=== PATIENT | male | born 1965 | race Two or more races ===

== ENCOUNTER 2024-12-23 18:14 | Inpatient (IN) | payer MEDICAID, OTHER ==
[~2024-12-23] VITALS: Ht 160 cm; Wt 161.3 kg
--- NOTE | 2024-12-23 18:36 | ECG ---
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
--- NOTE | 2024-12-23 18:44 | ED.PDOC ---
History of Present Illness HPI Comments 59-year-old male presents with chief complaint of epigastric abdominal pain, that radiates to his groin, with associated spoke constipation, headache, and mild shortness of breath. Patient reports on symptoms beginning, suddenly, at around 9:00 a.m., yesterday, after getting up from a seated position from his kitchen table. Pain is reported to have significantly worsened since then and feels similar to when he ripped his hernia mesh 3-4 times in the past, with exception of pain, now, radiating. He suspects on, possibly, moving and twisting the wrong way then as the possible cause of his pain. He also report isolated incident of dark stool production, yesterday. Significant history of hernia mesh repair 1x year ago, Hepatitis C, HLD, HTN, and left kidney atrophy. Patient denies having any vomiting, diarrhea, urinary symptoms, fever, chills, or further associated symptoms. Time Seen by MD: 18:20 Reviewed Notes: Nurses Notes, Medications, Allergies Allergies: Coded Allergies: NO KNOWN ALLERGIES (Unverified , 12/23/24) Home Meds Reported Medications Atorvastatin Calcium (Lipitor) 40 Mg Tab, 1 TAB PO QPM, #90 TAB 1 Refill 12/24/24 Fluoxetine Hcl (Fluoxetine Hcl) 20 Mg Tab, 1 TAB PO TID, #90 TAB 3 Refills 12/24/24 Loratadine (Loradamed) 10 Mg Tab, 10 MG PO DAILY, MG 12/24/24 Cholecalciferol (Vitamin D-3) 5,000 Unit Cap, 5000 UNIT PO, CAP 12/24/24 Lisinopril (Lisinopril) 20 Mg Tab, 1 TAB PO DAILY, #30 TAB 5 Refills 12/24/24 Information Source: Patient Mode of Arrival: Ambulatory Severity: Moderate Timing: Days Duration: Since onset Prehospital treatment: None Review of Systems: REVIEW OF SYSTEMS: No fever, no chills, or fatigue HEENT: No sore throat, no earache, no congestion, no neck pain. Cardiac: No chest pain. No palpitations. Lungs: Mild shortness of breath, no cough. GI: Abdominal pain, nausea, possible constipation, no diarrhea, no vomiting : Groin pain, No dysuria, frequency, or urgency. No hematuria. Musculoskeletal: No joint pain , no joint swelling, no extremity edema. Skin: No rash, no itching. Neuro: Headache, no dizziness, no weakness Vital Signs Vital Signs Date Time Temp Pulse Resp B/P (MAP) Pulse Ox O2 Delivery O2 Flow Rate FiO2 12/23/24 23:00 81 16 131/72 12/23/24 21:58 98.2 99 98.2 Physical Exam General: Awake, alert and oriented. No acute distress. Skin: Skin in warm, dry and intact. Appropriate color for ethnicity. HEENT: The head is normocephalic and atraumatic. Conjunctivae are clear without exudates or hemorrhage. Sclera is non-icteric. EOM are intact. No signs of nystagmus. Eyelids are normal in appearance without swelling or lesions. Oral mucosa is pink and moist Neck: The neck is supple with normal range of motion. No JVD. Cardiac: Heart rate and rhythm are normal. No murmurs, gallops, or rubs are auscultated. Respiratory: No signs of respiratory distress. Lung sounds are clear in all lobes bilaterally without rales, rhonchi, or wheezes. Abdominal: Midline abdominal surgical scar, with the associated tenderness. Positive voluntary guarding. Otherwise, remaining abdomen is soft, non-tender without distention or rigidity. Bowel sounds are present and normoactive in all four quadrants. Extremities: Upper and lower extremities are atraumatic in appearance without deformity or edema. Neurological: The patient is awake, alert and oriented to person, place, and time with normal speech. Speech is clear. There is no facial asymmetry. Psychiatric: Appropriate mood and affect. Good judgement and insight. Past Medical History PAST MEDICAL HISTORY: High Lipids, HTN Past Medical History (Other): Left kidney atrophy Previous Hepatitis-C Surgical History: Hernia Repair Family History Family History: Unknown Social History Smoker: Non-Smoker Alcohol: Denies ETOH Use Drugs: Denies Drug Use Lives In: Home Was a procedure done? Was a procedure done?: No EKG EKG : Pulse Rate (adult): 104 [place]: Normal Cardiac Rhythm: ST Block: None Hypertrophy: None ST: Normal Differential Dx Considerations may include: Differential diagnoses considered include: Abdominal aortic aneurysm, HI, esophageal rupture, intestinal obstruction, mesenteric ischemia, perforated viscus or solid organ rupture, CHF with hepatomegaly, pneumonia, abscess, appendicitis, biliary disease, diverticulitis, gastritis, gastroenteritis, hepatitis, hernia, inflammatory bowel disease, pancreatitis, peptic ulcer disease, urinary tract infection, ureteral colic, constipation, GERD, irritable syndrome, abdominal wall pain, nonspecific abdominal pain, herpes zoster, nephrolithiasis. X-Ray, Labs, Meds, VS Vital Signs Date Time Temp Pulse Resp B/P (MAP) Pulse Ox O2 Delivery O2 Flow Rate FiO2 12/23/24 23:00 81 16 131/72 12/23/24 22:00 110 18 156/99 12/23/24 21:58 98.2 110 18 156/99 (118) 99 98.2 12/23/24 18:44 104 12/23/24 18:35 104 12/23/24 18:27 98.6 117 16 151/100 (117) 99 98.6 Lab Test 12/23/24 21:48 12/23/24 19:02 Range/Units Urine Color Light-yellow Yellow Urine Clarity Clear Clear Urine pH 6.0 5.0-9.0 Urine Specific [place] 1.040 H 1.001-1.035 Urine Protein Negative Negative Urine Ketones Negative Negative Urine Blood 1+ H Negative /uL Urine Nitrite Negative Negative Urine Bilirubin Negative Negative Urine Urobilinogen Normal Negative mg/dL Urine Leukocyte Esterase Negative Negative /uL Urine RBC 13 0 - 3 /hpf Urine Microscopic WBC 1 0-3 /HPF Urine Squamous Epithelial Cells None seen <5 /hpf Urine Bacteria None seen None Seen /hpf Urine Glucose Normal Normal mg/dL White Blood Count 12.9 H 4.4-10.8 10^3/uL Red Blood Count 5.32 4.5-5.90 10^6/uL Hemoglobin 16.9 13.5-17.5 g/dL Hematocrit 48.8 41.0-53.0 % Mean Corpuscular Volume 91.7 80.0-100.0 fL Mean Corpuscular Hemoglobin 31.7 28.0-32.0 pg Mean Corpuscular Hemoglobin Concent 34.6 32.0-36.0 g/dL Red Cell Distribution Width 13.4 11.8-14.3 % Platelet Count 225 140-450 10^3/uL Mean Platelet Volume 8.5 6.9-10.8 fL Neutrophils (%) (Auto) 65.2 37.0-80.0 % Lymphocytes (%) (Auto) 21.8 10.0-50.0 % Monocytes (%) (Auto) 12.4 H 0.0-12.0 % Eosinophils (%) (Auto) 0.5 0.0-7.0 % Basophils (%) (Auto) 0.1 0.0-2.0 % Neutrophils # (Auto) 8.4 1.6-8.6 10 ^3/uL Lymphocytes # (Auto) 2.8 0.4-5.4 10 ^3/uL Monocytes # (Auto) 1.6 H 0-1.3 10 ^3/uL Eosinophils # (Auto) 0.1 0-0.8 10 ^3/uL Basophils # (Auto) 0 0-0.2 10 ^3/uL Nucleated Red Blood Cells 0.0 % Sodium Level 139 136-145 mmol/L Potassium Level 4.1 3.5-5.1 mmol/L Chloride Level 104 98-107 mmol/L Carbon Dioxide Level 27 20-31 mmol/L Anion Gap 8 5-15 Blood Urea Nitrogen 14 9-23 mg/dL Creatinine 1.37 H 0.700-1.30 mg/dL Glomerular Filtration Rate Calc 60 >90 mL/min BUN/Creatinine Ratio 10.2 10.0-20.0 Serum Glucose 111 H 74-106 mg/dL Lactic Acid Level 1.2 0.4-2.0 mmol/L Calcium Level 9.2 8.7-10.4 mg/dL Total Bilirubin 0.9 0.2-1.0 mg/dL Aspartate Amino Transferase (AST) 27 13-40 U/L Alanine Aminotransferase (ALT) 34 7-40 U/L Alkaline Phosphatase 97 46-116 U/L Troponin I High Sensitivity 3 L </=54 ng/L Total Protein 7.5 5.7-8.2 g/dL Albumin 4.8 3.2-4.8 g/dL Lipase 42 12-53 U/L Current Medications Medications (Trade) Dose Ordered Sig/Waqar Route Start Time Stop Time Status Last Admin Piperacillin Sod/ Tazobactam Sod 100 ml @ 100 mls/hr ONCE ONCE IV 12/23/24 22:30 12/23/24 23:29 DC 12/23/24 23:13 [facility] [id number] [place] [id number] Ph: [phone] DIAGNOSTIC IMAGING Diagnostic Imaging Report : [id number] Signed PATIENT: FAISAL GREENFIELD ACCT: [id number] UNIT: [id number] : 1965 LOC: ER ROOM / BED: / AGE / SEX: 59 / M ADM STATUS: REG ER SERVICE 27 ORDERING PHYSICIAN: GENNARO ANNA MD PROCEDURE(s): TESUS - TESTICULAR ULTRASOUND REASON: b/l testicular pain ORDER NUMBER(s): [id number], ACCESSION NUMBER(s): [id number] ULTRASOUND OF SCROTUM AND CONTENTS. INDICATION: b/l testicular pain COMPARISON: None TECHNIQUE: Multiple real-time grayscale sonographic and color and duplex Doppler images of the scrotum and its contents were obtained. FINDINGS: RIGHT TESTICLE: Measures 4.7 x 2.2 x 2.7 cm. Right hydrocele LEFT TESTICLE: Measures 4.9 x 2.5 x 2.9 cm. Left hydrocele Small isoechoic left epididymal mass measuring 3 x 2 x 4 mm may represent complex cysts recommend follow-up. Both testicles demonstrate homogeneous echotexture without evidence of focal lesions. The right epididymal head measures 13 mm. The left epididymal head measures 10 mm. Subsequent color and duplex Doppler interrogation of the testes demonstrated symmetric normal vascular flow to both testicles. No focal areas of hyperemia were seen. IMPRESSION: 1. No evidence of torsion, epididymitis, and/or orchitis. 2. Small bilateral hydrocele 3. Small isoechoic structure off the left epididymis measuring 3 x 2 x 4 mm. Consider follow-up. ATED BY: MIKAEL ELIZABETH Jr., DO DICTATED DATE/TIME: 12/23/241920 SIGNED BY: MIKAEL ELIZABETH Jr., SIGNED DATE/TIME: 12/23/241920 CC: Time of 1ST Reevaluation: 18:50 Reevaluation 1ST: Unchanged Patient Education/Counseling: Treatment Family Education/Counseling: No Family Present SEPSIS Sepsis Screen Physician Orders Testicular Ultrasound (12/23/24 18:28) Ct Chest/Ab/Pl W Con- Iv Only (12/23/24 18:28) Blood Culture (12/23/24 22:21) Vital Signs Date Time Temp Pulse Resp B/P (MAP) Pulse Ox O2 Delivery O2 Flow Rate FiO2 12/23/24 23:00 81 16 131/72 12/23/24 22:00 110 18 156/99 12/23/24 21:58 98.2 110 18 156/99 (118) 99 98.2 12/23/24 18:44 104 12/23/24 18:35 104 12/23/24 18:27 98.6 117 16 151/100 (117) 99 98.6 Laboratory Tests Test 12/23/24 19:02 Lactic Acid Level 1.2 mmol/L (0.4-2.0) White Blood Count 12.9 10^3/uL (4.4-10.8) H Departure 1 Departure Time of Disposition: 22:22 Impression: Primary Impression: Bilateral hydrocele Additional Impression: Diverticulitis of intestine Disposition: ADMITTED INPATIENT Condition: Stable Comments Antibiotics initiated in the emergency department Patient admitted to hospitalist service for further treatment, evaluation and monitoring. Extensive evaluation was performed in attempt to identify or rule out: (See differential diagnosis section) The following tests were ordered, and results were reviewed by me and discussed with patient: (See diagnostic results section) The following test were independently interpreted by me: N/A I reviewed and agreed with the following test results read by other providers: CT angio chest and aorta with contrast, testicular ultrasound I reviewed the following notes from the pt's past medical encounters: N/A Additional information was gathered from interviewing the following independent historians: N/A Discussion of management or test interpretation with external physician/other qualified health care transition coordinator: N/A Addressed an acute or chronic illness that poses a threat to life or bodily function: Diverticulitis with abscess versus phlegmon Decision regarding hospitalization or escalation of hospital level of care: Risk and benefits of admission for further treatment of patient's condition was considered. Due to patient's current clinical condition, high risk of decline and poor outcome if discharged and need for further inpatient management and monitoring, patient will be admitted to the hospital. Critical Care Note Critical Care Time?: No Stability Stability form required: No Heart Score Heart Score: Heart Score Response (Comments) Value History N/A 0 EKG N/A 0 Age N/A 0 Risk Factors N/A 0 Troponin N/A 0 Total 0 I personally scribed for GENNARO ANNA MD ([email or web address]) on 12/23/24 at 18:44. Electronically submitted by Faisal Mitchell ([email or web address]). I personally scribed for GENNARO ANNA MD ([email or web address]) on 12/23/24 at 20:30. Electronically submitted by Faisal Mitchell ([email or web address]). GENNARO ANNA MD Dec 23, 2024 18:44
--- NOTE | 2024-12-23 19:24 | DVH ---
ULTRASOUND OF SCROTUM AND CONTENTS. INDICATION: b/l testicular pain COMPARISON: None TECHNIQUE: Multiple real-time grayscale sonographic and color and duplex Doppler images of the scrotu m and its contents were obtained. FINDINGS: RIGHT TESTICLE: Measures 4.7 x 2.2 x 2.7 cm. Right hydrocele LEFT TESTICLE: Measures 4.9 x 2.5 x 2.9 cm. Left hydrocele Small isoechoic left epididymal mass measuring 3 x 2 x 4 mm may represent complex cysts recommend fol low-up. Both testicles demonstrate homogeneous echotexture without evidence of focal lesions. The right epididymal head measures 13 mm. The left epididymal head measures 10 mm. Subsequent color and duplex Doppler interrogation of the testes demonstrated symmetric normal vascula r flow to both testicles. No focal areas of hyperemia were seen. IMPRESSION: 1. No evidence of torsion, epididymitis, and/or orchitis. 2. Small bilateral hydrocele 3. Small isoechoic structure off the left epididymis measuring 3 x 2 x 4 mm. Consider follow-up.
[2024-12-23 19:30] LABS: Alanine Aminotransferase 34 U/L (7-40); Albumin 4.8 g/dL (3.2-4.8); Alkaline Phosphatase 97 U/L (46-116); Anion Gap 8 (5-15); BUN/Creatinine Ratio 10.2 (10.0-20.0); Bilirubin, Total 0.9 mg/dL (0.2-1.0); Blood Urea Nitrogen 14 mg/dL (9-23); Calcium 9.2 mg/dL (8.7-10.4); Carbon Dioxide 27 mmol/L (20-31); Chloride 104 mmol/L (98-107); Lipase 42 U/L (12-53); Potassium 4.1 mmol/L (3.5-5.1); Sodium 139 mmol/L (136-145); Total Protein 7.5 g/dL (5.7-8.2)
[2024-12-23 19:36] LABS: Glucose 111 mg/dL (74-106)
[2024-12-23 19:41] LABS: Hematocrit 48.8 % (41.0-53.0); Hemoglobin 16.9 g/dL (13.5-17.5); Mean Corpuscular Hemoglobin 31.7 pg (28.0-32.0); Mean Corpuscular Volume 91.7 fL (80.0-100.0); Nucleated Red Blood Cells % 0.0 %
[2024-12-23] MEDS: SODIUM CHLORIDE 0.9% 1,000 ML IV ONE ×2 (21:54→22:30)
[2024-12-23] MEDS: IOHEXOL 350 MG/ML 100ML IJ ONE (21:55)
[2024-12-23] MEDS: ONDANSETRON HCL 4 MG/2 ML VIAL IV ONE (21:59)
[2024-12-23] MEDS: MORPHINE SULFATE INJ 2 MG/ml SYRG IV ONE (22:00)
--- NOTE | 2024-12-23 22:01 | DVH ---
EXAM: CT CT CHEST/AB/PL W CON- IV ONLY History: hx hernia mesh, midline abdom pain ANGIO CHEST ABD PEL Comparison Study: None TECHNIQUE: A digital maintainer operator image was obtained. During the uneventful, intravenous administration of c ontrast material, multislice data acquisition was obtained through the chest and abdomen/pelvis. 3-D postprocessing is performed by technologist including MIP imaging Radiation Dose : CTDI vol 12.15 mGy, DLP 799.19 mGy*cm. Findings: Chest: Evaluation is degraded by respiratory motion. Lungs: Mild dependent atelectatic changes. Pleura: Unremarkable. Heart/Great vessels: No cardiomegaly or pericardial effusion. Moderate to severe coronary artery calc ifications. No central pulmonary embolism. No aortic dissection. Mediastinum: Unremarkable. Soft tissues/Bones: Unremarkable Abdomen/pelvis: Liver: Unremarkable. Spleen: Unremarkable. Pancreas: Unremarkable. Gallbladder: Unremarkable. Adrenals: Unremarkable. Kidneys: Right renal cortical atrophy. Left renal cyst. No hydronephrosis. Pelvic Viscera: Unremarkable. Vasculature: No aortic dissection. Mild atherosclerotic aortoiliac calcifications. Retroperitoneum: Unremarkable. Bowel: There is colonic diverticulosis. There is wall thickening about the sigmoid colon with an dao roximately 1.9 cm extraluminal region of gas and soft tissue density, likely reflecting phlegmon/absc ess. There is adjacent stranding. No CT evidence of appendicitis. No bowel obstruction. Musculoskeletal: No acute fracture. Grade 1 anterolisthesis of L5 on S1 in the basis of bilateral par s defects. Soft tissues: Prior hernia repair. There is a tiny fat containing umbilical hernia. There is mild st randing within the ventral midline with an approximately 28 x 7 mm region of soft tissue density in t he region of the fascia. Impression: 1. Findings as above suggestive of acute sigmoid diverticulitis with associated small phlegmon/absces s. A posttreatment follow-up is suggested to ensure appropriate resolution and lack of underlying les ion. 2. Prior hernia repair with thin region of soft tissue density at the midline, possibly reflecting a sterility indeterminate fluid collection. Further clinical correlation is suggested. 3. No acute abnormality identified within the chest. 4. Additional findings as detailed.
[2024-12-23 22:12] LABS: Urine Protein, UAD Negative (Negative)
[2024-12-23] MEDS: PIPERACILLIN-TAZOB 3.375GM 100 ML IV ONE (23:13)
[2024-12-24] MEDS: SODIUM CHLORIDE 0.9% 1,000 ML IV ONE (00:15)
--- NOTE | 2024-12-24 00:25 | DVHHP2 ---
History of Present Illness Reason for Visit: Abdominal pain History of Present Illness 59-year-old male presents for evaluation of abdominal pain. Patient reports a one day history of sharp epigastric abdominal pain that radiates down to his groin. Reports episodes of nausea and chills. No diarrhea. No cardiac or respiratory complaints. Past Medical History Hypertension, dyslipidemia Past Surgical History Hernia repair Family History Noncontributory Smoke: No ALCOHOL: none Drugs: None Lives: with Family Review of Systems Review of Systems Review of systems are currently negative otherwise addressed in HPI. Allergies: Coded Allergies: NO KNOWN ALLERGIES (Unverified , 12/23/24) Medications Current Medications Medications Dose Ordered Sig/Waqar Route Start Time Stop Time Status Last Admin Dose Admin Piperacillin Sod/ Tazobactam Sod 100 ml @ 25 mls/hr Q8HR IV 12/24/24 06:00 UNV Ondansetron HCl 4 mg Q4HP PRN IV 12/24/24 00:15 UNV Morphine Sulfate 2 mg Q4HPRN PRN IV 12/24/24 00:15 UNV Exam Vital Signs Vital Signs Date Time Temp Pulse Resp B/P (MAP) Pulse Ox O2 Delivery O2 Flow Rate FiO2 12/23/24 22:00 110 18 156/99 12/23/24 21:58 98.2 99 98.2 Exam Gen: 59-year-old male in mild distress Skin: Warm, dry, normal color and texture, no rash. HEENT: Normocephalic atraumatic, mucous membranes moist and pink. Neck: Cervical and supraclavicular nodes normal without enlargement, trachea is midline, thyroid gland is normal without masses. Pulmonary: Clear to auscultation and percussion bilaterally. Cardiac: Regular rate and rhythm. No murmur Abdomen: Soft, nontender, nondistended, bowel sounds present all 4 quadrants, no guarding, no rigidity, no organomegaly. Extremities: No cyanosis, clubbing, no edema Neuro: Cranial nerves II through XII grossly intact, normal affect and speech, no focal motor deficits. Labs/Xrays ORDERING PHYSICIAN: GENNARO ANNA MD PROCEDURE(s): TESUS - TESTICULAR ULTRASOUND REASON: b/l testicular pain ORDER NUMBER(s): [id number], ACCESSION NUMBER(s): [id number] ULTRASOUND OF SCROTUM AND CONTENTS. INDICATION: b/l testicular pain COMPARISON: None TECHNIQUE: Multiple real-time grayscale sonographic and color and duplex Doppler images of the scrotum and its contents were obtained. FINDINGS: RIGHT TESTICLE: Measures 4.7 x 2.2 x 2.7 cm. Right hydrocele LEFT TESTICLE: Measures 4.9 x 2.5 x 2.9 cm. Left hydrocele Small isoechoic left epididymal mass measuring 3 x 2 x 4 mm may represent complex cysts recommend follow-up. Both testicles demonstrate homogeneous echotexture without evidence of focal lesions. The right epididymal head measures 13 mm. The left epididymal head measures 10 mm. Subsequent color and duplex Doppler interrogation of the testes demonstrated symmetric normal vascular flow to both testicles. No focal areas of hyperemia were seen. IMPRESSION: 1. No evidence of torsion, epididymitis, and/or orchitis. 2. Small bilateral hydrocele 3. Small isoechoic structure off the left epididymis measuring 3 x 2 x 4 mm. Consider follow-up. ATED BY: MIKAEL ELIZABETH Jr., DO DICTATED DATE/TIME: 12/23/241920 ORDERING PHYSICIAN: GENNARO ANNA MD PROCEDURE(s): CAPIV - CT CHEST/AB/PL W CON- IV ONLY REASON: hx hernia mesh, midline abdom pain ANGIO CHEST ABD PEL ORDER NUMBER(s): [id number], ACCESSION NUMBER(s): [id number] EXAM: CT CT CHEST/AB/PL W CON- IV ONLY History: hx hernia mesh, midline abdom pain ANGIO CHEST ABD PEL Comparison Study: None TECHNIQUE: A digital it help desk manager image was obtained. During the uneventful, intravenous administration of contrast material, multislice data acquisition was obtained through the chest and abdomen/pelvis. 3-D postprocessing is performed by technologist including MIP imaging Radiation Dose : CTDI vol 12.15 mGy, DLP 799.19 mGy*cm. Findings: Chest: Evaluation is degraded by respiratory motion. Lungs: Mild dependent atelectatic changes. Pleura: Unremarkable. Heart/Great vessels: No cardiomegaly or pericardial effusion. Moderate to severe coronary artery calcifications. No central pulmonary embolism. No aortic d issection. Mediastinum: Unremarkable. Soft tissues/Bones: Unremarkable Abdomen/pelvis: Liver: Unremarkable. Spleen: Unremarkable. Pancreas: Unremarkable. Gallbladder: Unremarkable. Adrenals: Unremarkable. Kidneys: Right renal cortical atrophy. Left renal cyst. No hydronephrosis. Pelvic Viscera: Unremarkable. Vasculature: No aortic dissection. Mild atherosclerotic aortoiliac calcifications. Retroperitoneum: Unremarkable. Bowel: There is colonic diverticulosis. There is wall thickening about the sigmoid colon with an approximately 1.9 cm extraluminal region of gas and soft tissue density, likely reflecting phlegmon/abscess. There is adjacent stranding. No CT evidence of appendicitis. No bowel obstruction. Musculoskeletal: No acute fracture. Grade 1 anterolisthesis of L5 on S1 in the basis of bilateral pars defects. Soft tissues: Prior hernia repair. There is a tiny fat containing umbilical hernia. There is mild stranding within the ventral midline with an approximately 28 x 7 mm region of soft tissue density in the region of the fascia. Impression: 1. Findings as above suggestive of acute sigmoid diverticulitis with associated small phlegmon/abscess. A posttreatment follow-up is suggested to ensure appropriate resolution and lack of underlying lesion. 2. Prior hernia repair with thin region of soft tissue density at the midline, possibly reflecting a sterility indeterminate fluid collection. Further clinical correlation is suggested. 3. No acute abnormality identified within the chest. 4. Additional findings as detailed. Labs Test 12/23/24 21:48 12/23/24 19:02 Range/Units Urine Color Light-yellow Yellow Urine Clarity Clear Clear Urine pH 6.0 5.0-9.0 Urine Specific [place] 1.040 H 1.001-1.035 Urine Protein Negative Negative Urine Ketones Negative Negative Urine Blood 1+ H Negative /uL Urine Nitrite Negative Negative Urine Bilirubin Negative Negative Urine Urobilinogen Normal Negative mg/dL Urine Leukocyte Esterase Negative Negative /uL Urine RBC 13 0 - 3 /hpf Urine Microscopic WBC 1 0-3 /HPF Urine Squamous Epithelial Cells None seen <5 /hpf Urine Bacteria None seen None Seen /hpf Urine Glucose Normal Normal mg/dL White Blood Count 12.9 H 4.4-10.8 10^3/uL Red Blood Count 5.32 4.5-5.90 10^6/uL Hemoglobin 16.9 13.5-17.5 g/dL Hematocrit 48.8 41.0-53.0 % Mean Corpuscular Volume 91.7 80.0-100.0 fL Mean Corpuscular Hemoglobin 31.7 28.0-32.0 pg Mean Corpuscular Hemoglobin Concent 34.6 32.0-36.0 g/dL Red Cell Distribution Width 13.4 11.8-14.3 % Platelet Count 225 140-450 10^3/uL Mean Platelet Volume 8.5 6.9-10.8 fL Neutrophils (%) (Auto) 65.2 37.0-80.0 % Lymphocytes (%) (Auto) 21.8 10.0-50.0 % Monocytes (%) (Auto) 12.4 H 0.0-12.0 % Eosinophils (%) (Auto) 0.5 0.0-7.0 % Basophils (%) (Auto) 0.1 0.0-2.0 % Neutrophils # (Auto) 8.4 1.6-8.6 10 ^3/uL Lymphocytes # (Auto) 2.8 0.4-5.4 10 ^3/uL Monocytes # (Auto) 1.6 H 0-1.3 10 ^3/uL Eosinophils # (Auto) 0.1 0-0.8 10 ^3/uL Basophils # (Auto) 0 0-0.2 10 ^3/uL Nucleated Red Blood Cells 0.0 % Sodium Level 139 136-145 mmol/L Potassium Level 4.1 3.5-5.1 mmol/L Chloride Level 104 98-107 mmol/L Carbon Dioxide Level 27 20-31 mmol/L Anion Gap 8 5-15 Blood Urea Nitrogen 14 9-23 mg/dL Creatinine 1.37 H 0.700-1.30 mg/dL Glomerular Filtration Rate Calc 60 >90 mL/min BUN/Creatinine Ratio 10.2 10.0-20.0 Serum Glucose 111 H 74-106 mg/dL Lactic Acid Level 1.2 0.4-2.0 mmol/L Calcium Level 9.2 8.7-10.4 mg/dL Total Bilirubin 0.9 0.2-1.0 mg/dL Aspartate Amino Transferase (AST) 27 13-40 U/L Alanine Aminotransferase (ALT) 34 7-40 U/L Alkaline Phosphatase 97 46-116 U/L Troponin I High Sensitivity 3 L </=54 ng/L Total Protein 7.5 5.7-8.2 g/dL Albumin 4.8 3.2-4.8 g/dL Lipase 42 12-53 U/L Assessment/Plan Assessment/Plan Assessment Acute abdominal pain Acute diverticulitis with possible abscess Leukocytosis Acute kidney injury Plan Admit the patient to [facility] to the hospitalist Radiology consult Zosyn Maintenance IV fluids NPO Pain management Continue treatment per orders. Plan discussed with: Patient My Orders Orders - VIKTOR CABAN Procedure Category Date Status Time Admit ADMIT 12/23/24 Transmitted 23:53 * Radiologist Consult CONS 12/24/24 Transmitted 00:03 Piperacillin-Tazob PHA 12/24/24 Logged 3.375gm (Zosyn 3.375g 06:00 Basic Metabolic Panel LAB 12/25/24 Verified 04:00 Ondansetron Hcl PHA 12/24/24 Logged (Zofran) 00:15 Complete Blood Count LAB 12/25/24 Verified 04:00 Npo (Nothing By DIET 12/24/24 Transmitted Mouth) Diet Breakfast Condition: Stable JENNIFER 12/24/24 In Process 00:03 Bedrest With Bathroom JENNIFER 12/24/24 In Process Privileg 00:03 Morphine Sulfate PHA 12/24/24 Logged Injection 00:15 Sodium Chloride 0.9% PHA 12/24/24 Logged 00:15 Date of Service: Dec 23, 2024 Billing Provider: VIKTOR CABAN Common Visit Codes: [id number] INP/OBS CARE (MOD) VIKTOR CABAN Dec 24, 2024 00:25
[2024-12-24] MEDS: ONDANSETRON HCL 4 MG/2 ML VIAL IV PRN (03:44)
[2024-12-24] MEDS: MORPHINE SULFATE INJ 2 MG/ml SYRG IV PRN (03:46)
[2024-12-24] MEDS: PIPERACILLIN-TAZOB 3.375GM 100 ML IV SCH (06:41)
[2024-12-24 08:30] VITALS: PULSE 19; RESP 19; O2SAT 98
[2024-12-24] MEDS ORDERED: ATOR-507 PO (08:41)
[2024-12-24] MEDS ORDERED: LORA-35 PO (08:41)
[2024-12-24] MEDS ORDERED: LISI20TA56 PO (08:41)
[2024-12-24] MEDS ORDERED: FLUO20TA42 PO (08:41)
[2024-12-24] MEDS ORDERED: CHOL500033 PO (08:41)
[2024-12-24 08:53] LABS: INR 1.11 (0.9-1.15); Partial Thromboplastin Time 28.6 SEC (24.5-34.5); Prothrombin Time 11.6 sec (9.3-11.8)
--- NOTE | 2024-12-24 17:06 | DVHPN2 ---
Subjective Patient reporting generalized abdominal pain. Reviewed: Care Plan, H&P, Labs, Medications Changes from previous H/P or p: No Changes General: Per HPI Objective Vitals Vital Signs Date Time Temp Pulse Resp B/P (MAP) Pulse Ox O2 Delivery O2 Flow Rate FiO2 12/24/24 14:35 88 18 144/84 (104) 94 12/24/24 11:30 98.4 98.4 12/24/24 08:30 Room Air* 0 21 General Appearance: Alert, Oriented X3, Cooperative, mild distress HEENT: Atraumatic, PERRLA Lungs: Clear to auscultation, Normal air movement Cardiovascular: Normal S1, Normal S2 Abdomen: Normal bowel sounds, Soft, No tenderness, No hepatospenomegaly Musculoskeletal: Normal sensory function, Normal motor function Neuro: Normal gait, Normal speech Skin: Dry, Intact Psych/Mental Status: Mental status NL, Mood NL Medications Current Medications Medications Dose Ordered Sig/Waqar Route Start Time Stop Time Status Last Admin Dose Admin Piperacillin Sod/ Tazobactam Sod 100 ml @ 25 mls/hr Q8HR IV 12/24/24 06:00 12/24/24 14:16 25 MLS/HR Ondansetron HCl 4 mg Q4HP PRN IV 12/24/24 00:15 12/24/24 14:35 4 MG Morphine Sulfate 2 mg Q4HPRN PRN IV 12/24/24 00:15 12/24/24 14:35 2 MG Laboratory Results Laboratory Tests 12/23/24 19:02 Chemistry Test 12/23/24 19:02 Albumin 4.8 g/dL (3.2-4.8) Calcium Level 9.2 mg/dL (8.7-10.4) Total Protein 7.5 g/dL (5.7-8.2) Coagulation Test 12/24/24 08:04 Prothrombin Time 11.6 sec (9.3-11.8) Prothrombin Time INR 1.11 (0.9-1.15) Activated Partial Thromboplast Time 28.6 SEC (24.5-34.5) Lipid panel Test 12/23/24 19:02 Lipase 42 U/L (12-53) LFT Test 12/23/24 19:02 Alanine Aminotransferase (ALT) 34 U/L (7-40) Alkaline Phosphatase 97 U/L (46-116) Aspartate Amino Transferase (AST) 27 U/L (13-40) Total Bilirubin 0.9 mg/dL (0.2-1.0) Urinalysis Test 12/23/24 21:48 Urine Color Light-yellow (Yellow) Urine Clarity Clear (Clear) Urine pH 6.0 (5.0-9.0) Urine Specific [place] 1.040 (1.001-1.035) Urine Protein Negative (Negative) Urine Ketones Negative (Negative) Urine Blood 1+ /uL (Negative) H Urine Nitrite Negative (Negative) Urine Bilirubin Negative (Negative) Urine Urobilinogen Normal mg/dL (Negative) Urine Leukocyte Esterase Negative /uL (Negative) Urine RBC 13 /hpf (0 - 3) Urine Microscopic WBC 1 /HPF (0-3) Urine Squamous Epithelial Cells None seen /hpf (<5) Urine Bacteria None seen /hpf (None Seen) Urine Glucose Normal mg/dL (Normal) Labs and/or images reviewed: Labs reviewed by me, Image(s) reviewed by me Assessment/Plan Assessment/Plan Impression: -diverticular abscess -sepsis -dyslipidemia -primary hypertension Plan: -continue NPO status -start IV hydration -continue antibiotic therapy with Zosyn -PPI -repeat labs in a.m. Total time spent with patient discussing and formulating plan of care: 35 minutes. This medical document was created using an electronic medical record system with [employer] dictation system. Although this document has been carefully reviewed, there may still be some phonetic and typographical errors. These areas are purely typographical due to imperfections of the software programs, and do not reflect any compromise in the patient's medical care. Plan discussed with: Patient, Other (RN) My Orders Orders - JOHN REDDY NP Procedure Category Date Status Time D5w/Sod Chlo 0.9% Ns PHA 12/24/24 Transmitted 17:15 Pantoprazole PHA 12/25/24 Transmitted (Protonix) 10:00 Date of Service: Dec 25, 2024 Billing Provider: JOHN REDDY NP Common Visit Codes: [id number] INP/OBS CARE(HIGH) JOHN REDDY NP Dec 24, 2024 17:06
[2024-12-24] MEDS: D5W/SOD CHLO 0.9% 1,000 ML IV SCH (17:15)
[2024-12-24 19:45] VITALS: BP 146/92; PULSE 87; RESP 16; TEMP 98.1; O2SAT 95
[2024-12-24 21:00] VITALS: BP 146/92; PULSE 87; RESP 16; TEMP 98.1; O2SAT 95
[2024-12-25] VITALS (7 sets, daily range): BP systolic 120–137; BP diastolic 74–87; PULSE 79–94; RESP 16–18; TEMP 97.7–98.9; O2SAT 93–95
[2024-12-25 05:47] LABS: Hematocrit 45.2 % (41.0-53.0); Hemoglobin 15.6 g/dL (13.5-17.5); Mean Corpuscular Hemoglobin 32.0 pg (28.0-32.0); Mean Corpuscular Volume 93.0 fL (80.0-100.0); Nucleated Red Blood Cells % 0.1 %
[2024-12-25 06:01] LABS: Potassium 4.1 mmol/L (3.5-5.1); Sodium 140 mmol/L (136-145)
[2024-12-25 06:02] LABS: Anion Gap 6 (5-15); Carbon Dioxide 27 mmol/L (20-31)
[2024-12-25 06:03] LABS: Calcium 9.7 mg/dL (8.7-10.4)
[2024-12-25 06:07] LABS: BUN/Creatinine Ratio 9.4 (10.0-20.0); Blood Urea Nitrogen 11 mg/dL (9-23); Glucose 105 mg/dL (74-106)
[2024-12-25 06:13] LABS: Chloride 107 mmol/L (98-107)
[2024-12-25] MEDS: PANTOPRAZOLE 40 MG/10 ML VIAL INJ IV SCH (09:58)
--- NOTE | 2024-12-25 15:00 | DVHPN2 ---
Subjective PATIENT CONTINUES TO REPORT HAVING ABDOMINAL PAIN Reviewed: Care Plan, H&P, Labs, Medications Changes from previous H/P or p: No Changes General: Per HPI Objective Vitals Vital Signs Date Time Temp Pulse Resp B/P (MAP) Pulse Ox O2 Delivery O2 Flow Rate FiO2 12/25/24 13:53 74 17 124/68 12/25/24 12:30 98.5 93 98.5 12/25/24 08:00 Room Air* 0 21 Intake/Output Intake and Output 12/25/24 07:00 Intake Total 200 ml Balance 200 ml Intake Oral 0 ml IV Total 200 ml General Appearance: Alert, Oriented X3, Cooperative, No acute distress HEENT: Atraumatic, PERRLA Lungs: Clear to auscultation, Normal air movement Cardiovascular: Normal S1, Normal S2 Skin: Dry, Intact Psych/Mental Status: Mental status NL, Mood NL Medications Current Medications Medications Dose Ordered Sig/Waqar Route Start Time Stop Time Status Last Admin Dose Admin Piperacillin Sod/ Tazobactam Sod 100 ml @ 25 mls/hr Q8HR IV 12/24/24 06:00 12/25/24 13:20 25 MLS/HR Ondansetron HCl 4 mg Q4HP PRN IV 12/24/24 00:15 12/25/24 13:21 4 MG Morphine Sulfate 2 mg Q4HPRN PRN IV 12/24/24 00:15 12/25/24 13:23 2 MG Dextrose/Sodium Chloride 1,000 ml @ 100 mls/hr Q10H IV 12/24/24 17:15 12/25/24 13:20 100 MLS/HR Pantoprazole Sodium 40 mg DAILY IV 12/25/24 10:00 12/25/24 09:58 40 MG Laboratory Results Laboratory Tests 12/25/24 04:49 Chemistry Test 12/25/24 04:49 Calcium Level 9.7 mg/dL (8.7-10.4) Urinalysis Test 12/23/24 21:48 Urine Color Light-yellow (Yellow) Urine Clarity Clear (Clear) Urine pH 6.0 (5.0-9.0) Urine Specific [place] 1.040 (1.001-1.035) Urine Protein Negative (Negative) Urine Ketones Negative (Negative) Urine Blood 1+ /uL (Negative) H Urine Nitrite Negative (Negative) Urine Bilirubin Negative (Negative) Urine Urobilinogen Normal mg/dL (Negative) Urine Leukocyte Esterase Negative /uL (Negative) Urine RBC 13 /hpf (0 - 3) Urine Microscopic WBC 1 /HPF (0-3) Urine Squamous Epithelial Cells None seen /hpf (<5) Urine Bacteria None seen /hpf (None Seen) Urine Glucose Normal mg/dL (Normal) Microbiology Microbiology Date/Time Source Procedure Growth Status 12/23/24 22:49 Blood Blood Culture - Preliminary NO GROWTH AFTER 24 HOURS OF INCUBATION. Resulted Labs and/or images reviewed: Labs reviewed by me, Image(s) reviewed by me Assessment/Plan Assessment/Plan Impression: -diverticular abscess -sepsis -primary hypertension -dyslipidemia Plan: -NPO status -continue IV Zosyn -start IV fluids -PPI -repeat labs in a.m. -pain management Total time spent with patient discussing and formulating plan of care: 35 minutes. This medical document was created using an electronic medical record system with [employer] dictation system. Although this document has been carefully reviewed, there may still be some phonetic and typographical errors. These areas are purely typographical due to imperfections of the software programs, and do not reflect any compromise in the patient's medical care. Plan discussed with: Patient, Other (RN) My Orders Orders - JOHN REDDY NP Procedure Category Date Status Time D5w/Sod Chlo 0.9% PHA 12/24/24 In Process (D5w Ns 0.9%) 17:15 Pantoprazole PHA 12/25/24 In Process (Protonix) 10:00 Basic Metabolic Panel LAB 12/26/24 Verified 05:00 Basic Metabolic Panel LAB 12/27/24 Verified 05:00 Basic Metabolic Panel LAB 12/28/24 Verified 05:00 Complete Blood Count LAB 12/26/24 Verified 05:00 Complete Blood Count LAB 12/27/24 Verified 05:00 Complete Blood Count LAB 12/28/24 Verified 05:00 OOB ORDERS 12/25/24 Verified 14:55 Date of Service: Dec 25, 2024 Billing Provider: JOHN REDDY NP Common Visit Codes: [id number] INP/OBS CARE(HIGH) JOHN REDDY NP Dec 25, 2024 15:00
[2024-12-26] VITALS (7 sets, daily range): BP systolic 119–141; BP diastolic 78–90; PULSE 70–80; RESP 17–19; TEMP 97.9–98.8; O2SAT 94–97
[2024-12-26 07:36] LABS: Potassium 3.9 mmol/L (3.5-5.1); Sodium 141 mmol/L (136-145)
[2024-12-26 07:37] LABS: Anion Gap 10 (5-15); Calcium 9.8 mg/dL (8.7-10.4); Carbon Dioxide 23 mmol/L (20-31)
[2024-12-26 07:42] LABS: BUN/Creatinine Ratio 6.3 (10.0-20.0); Glucose 99 mg/dL (74-106)
[2024-12-26 07:43] LABS: Blood Urea Nitrogen 7 mg/dL (9-23); Chloride 108 mmol/L (98-107)
[2024-12-26 07:44] LABS: Hematocrit 46.3 % (41.0-53.0); Hemoglobin 15.9 g/dL (13.5-17.5); Mean Corpuscular Hemoglobin 31.7 pg (28.0-32.0); Mean Corpuscular Volume 92.3 fL (80.0-100.0); Nucleated Red Blood Cells % 0.1 %
[2024-12-26] MEDS ORDERED: IOHEXOL 300 MG/ML 100ML BOTTLE IJ ONE (10:13)
--- NOTE | 2024-12-26 10:40 | DVHPN2 ---
Subjective Patient denies any abdominal pain overnight or this a.m.. Reports he is able to ambulate without any further pain. Reviewed: Care Plan, H&P, Labs, Medications Changes from previous H/P or p: Changes General: Per HPI Objective Vitals Vital Signs Date Time Temp Pulse Resp B/P (MAP) Pulse Ox O2 Delivery O2 Flow Rate FiO2 12/26/24 09:00 98.0 77 19 138/90 (106) 94 98.0 12/26/24 08:00 Room Air* 0 21 Intake/Output Intake and Output 12/26/24 07:00 Intake Total 1100 ml Balance 1100 ml IV Total 1100 ml # Voids 4 # Bowel Movements 2 General Appearance: Alert, Oriented X3, Cooperative, mild distress HEENT: Atraumatic, PERRLA Lungs: Clear to auscultation, Normal air movement Cardiovascular: Normal S1, Normal S2 Abdomen: Normal bowel sounds, Soft, No tenderness, No hepatospenomegaly Musculoskeletal: Normal sensory function, Normal motor function Neuro: Normal gait, Normal speech Skin: Dry, Intact Psych/Mental Status: Mental status NL, Mood NL Medications Current Medications Medications Dose Ordered Sig/Waqar Route Start Time Stop Time Status Last Admin Dose Admin Piperacillin Sod/ Tazobactam Sod 100 ml @ 25 mls/hr Q8HR IV 12/24/24 06:00 12/26/24 05:48 25 MLS/HR Ondansetron HCl 4 mg Q4HP PRN IV 12/24/24 00:15 12/25/24 13:21 4 MG Morphine Sulfate 2 mg Q4HPRN PRN IV 12/24/24 00:15 12/25/24 13:23 2 MG Dextrose/Sodium Chloride 1,000 ml @ 100 mls/hr Q10H IV 12/24/24 17:15 12/25/24 22:03 100 MLS/HR Pantoprazole Sodium 40 mg DAILY IV 12/25/24 10:00 12/26/24 08:36 40 MG Laboratory Results Laboratory Tests 12/26/24 06:38 Chemistry Test 12/26/24 06:38 Calcium Level 9.8 mg/dL (8.7-10.4) Urinalysis Test 12/23/24 21:48 Urine Color Light-yellow (Yellow) Urine Clarity Clear (Clear) Urine pH 6.0 (5.0-9.0) Urine Specific [place] 1.040 (1.001-1.035) Urine Protein Negative (Negative) Urine Ketones Negative (Negative) Urine Blood 1+ /uL (Negative) H Urine Nitrite Negative (Negative) Urine Bilirubin Negative (Negative) Urine Urobilinogen Normal mg/dL (Negative) Urine Leukocyte Esterase Negative /uL (Negative) Urine RBC 13 /hpf (0 - 3) Urine Microscopic WBC 1 /HPF (0-3) Urine Squamous Epithelial Cells None seen /hpf (<5) Urine Bacteria None seen /hpf (None Seen) Urine Glucose Normal mg/dL (Normal) Microbiology Microbiology Date/Time Source Procedure Growth Status 12/23/24 22:49 Blood Blood Culture - Preliminary NO GROWTH AFTER 48 HOURS OF INCUBATION. Resulted Labs and/or images reviewed: Labs reviewed by me, Image(s) reviewed by me Assessment/Plan Assessment/Plan Impression: -diverticular abscess -sepsis -dyslipidemia -primary hypertension Plan: Events: Patient denies any pain. Repeat CT scan of the abdomen and pelvis IV contrast order. White blood cell count remains normal. -continue NPO status -continue IV hydration -continue antibiotic therapy with Zosyn -PPI -repeat labs in a.m. Total time spent with patient discussing and formulating plan of care: 35 minutes. This medical document was created using an electronic medical record system with [employer] dictation system. Although this document has been carefully reviewed, there may still be some phonetic and typographical errors. These areas are purely typographical due to imperfections of the software programs, and do not reflect any compromise in the patient's medical care. Plan discussed with: Patient, Other (RN) My Orders Orders - JOHN REDDY NP Procedure Category Date Status Time Basic Metabolic Panel LAB 12/27/24 Verified 05:00 Basic Metabolic Panel LAB 12/28/24 Verified 05:00 Complete Blood Count LAB 12/27/24 Verified 05:00 Complete Blood Count LAB 12/28/24 Verified 05:00 OOB ORDERS 12/25/24 Transmitted 14:55 Stool Bacterial KRISTIN 12/26/24 In Process Culture 09:08 Ct Ab Pel With Iv Con CT 12/26/24 Taken Only 09:34 Date of Service: Dec 26, 2024 Billing Provider: JOHN REDDY NP Common Visit Codes: [id number] INP/OBS CARE(HIGH) JOHN REDDY NP Dec 26, 2024 10:40
--- NOTE | 2024-12-26 10:49 | DVH ---
CT CT AB PEL WITH IV CON ONLY INDICATION: reassess diverticular abscess EXAM DATE: 12/26/2024 10:10 AM COMPARISON: CT CT CHEST/AB/PL W CON- IV ONLY on DOS: 12/23/24 RADIATION DOSE: CTDIvol: 17 mGy, DLP: 797 mGy*cm PROCEDURE: Helical CT images were obtained of the abdomen and pelvis with IV contrast Sagittal and co rocael reconstructions are provided. ORAL CONTRAST: None. ADDITIONAL IMAGES / REFORMATS: None All CT s cans at this medical facility are performed using dose modulation techniques as appropriate to a perf ormed exam including the following: Automated exposure control was utilized; adjustment of the MA and /or KV according to patient size; and use of iterative reconstruction technique. FINDINGS: LUNG BASE: Normal. LIVER: Normal. GALLBLADDER AND BILIARY TREE: No calcified gallstones. Normal caliber wall. No intra- or extrahepatic biliary ductal dilation. PANCREAS: Normal. SPLEEN: Normal. BOWEL: Moderate colonic diverticulosis with similar sigmoid colonic diverticulitis and small adajcent phlegmon. ADRENALS: Normal. KIDNEYS AND URETER: Atrophic right kidney. Punctate left kidney stone. BLADDER: Normal. REPRODUCTIVE ORGANS: Normal. LYMPH NODES:No lymphadenopathy. PERITONEUM: No ascites or free air. No other fluid collection. VESSELS: Scattered atherosclerotic calcifications are noted. RETROPERITONEUM: Normal. ABDOMINAL WALL: Ventral abdominal wall hernia mesh is seen. BONES: Scattered osseous degenerative changes are noted. IMPRESSION: Moderate colonic diverticulosis with similar sigmoid colonic diverticulitis and small adajcent phlegm on. No fluid collection to suggest for abscess.
[2024-12-27 05:00] VITALS: BP 133/81; PULSE 72; RESP 17; TEMP 97.7; O2SAT 96
[2024-12-27 06:36] LABS: Anion Gap 9 (5-15); Carbon Dioxide 24 mmol/L (20-31); Chloride 109 mmol/L (98-107); Potassium 3.7 mmol/L (3.5-5.1); Sodium 142 mmol/L (136-145)
[2024-12-27 06:37] LABS: Calcium 9.5 mg/dL (8.7-10.4)
[2024-12-27 06:40] LABS: Hematocrit 43.4 % (41.0-53.0); Hemoglobin 15.2 g/dL (13.5-17.5); Mean Corpuscular Hemoglobin 32.0 pg (28.0-32.0); Mean Corpuscular Volume 91.4 fL (80.0-100.0); Nucleated Red Blood Cells % 0.3 %
[2024-12-27 06:42] LABS: BUN/Creatinine Ratio 5.6 (10.0-20.0); Glucose 103 mg/dL (74-106)
[2024-12-27 06:44] LABS: Blood Urea Nitrogen 6 mg/dL (9-23)
[2024-12-27 08:00] VITALS: PULSE 76; RESP 18
[2024-12-27 08:30] VITALS: BP 145/93; PULSE 68; RESP 16; TEMP 98.1; O2SAT 95
[2024-12-27 12:30] VITALS: BP 155/89; PULSE 70; RESP 18; TEMP 98.2; O2SAT 97
--- NOTE | 2024-12-27 14:24 | DVHPN2 ---
Subjective Patient denies any abdominal pain overnight or this a.m.. Reports he is able to ambulate without any further pain. Reviewed: Care Plan, H&P, Labs, Medications Changes from previous H/P or p: No Changes General: Per HPI Objective Vitals Vital Signs Date Time Temp Pulse Resp B/P (MAP) Pulse Ox O2 Delivery O2 Flow Rate FiO2 12/27/24 08:30 98.1 68 16 145/93 (110) 95 98.1 12/27/24 08:00 Room Air* 0 21 Intake/Output Intake and Output 12/27/24 07:00 Intake Total 100 ml Balance 100 ml Intake Oral 0 ml IV Total 100 ml # Voids 2 # Bowel Movements 2 General Appearance: Alert, Oriented X3, Cooperative, mild distress HEENT: Atraumatic, PERRLA Lungs: Clear to auscultation, Normal air movement Cardiovascular: Normal S1, Normal S2 Abdomen: Normal bowel sounds, Soft, No tenderness, No hepatospenomegaly Musculoskeletal: Normal sensory function, Normal motor function Neuro: Normal gait, Normal speech Skin: Dry, Intact Psych/Mental Status: Mental status NL, Mood NL Medications Current Medications Medications Dose Ordered Sig/Waqar Route Start Time Stop Time Status Last Admin Dose Admin Piperacillin Sod/ Tazobactam Sod 100 ml @ 25 mls/hr Q8HR IV 12/24/24 06:00 12/27/24 05:23 25 MLS/HR Ondansetron HCl 4 mg Q4HP PRN IV 12/24/24 00:15 12/25/24 13:21 4 MG Morphine Sulfate 2 mg Q4HPRN PRN IV 12/24/24 00:15 12/25/24 13:23 2 MG Dextrose/Sodium Chloride 1,000 ml @ 100 mls/hr Q10H IV 12/24/24 17:15 12/27/24 08:36 100 MLS/HR Pantoprazole Sodium 40 mg DAILY IV 12/25/24 10:00 12/27/24 08:36 40 MG Laboratory Results Laboratory Tests 12/27/24 05:47 Chemistry Test 12/27/24 05:47 Calcium Level 9.5 mg/dL (8.7-10.4) Urinalysis Test 12/23/24 21:48 Urine Color Light-yellow (Yellow) Urine Clarity Clear (Clear) Urine pH 6.0 (5.0-9.0) Urine Specific [place] 1.040 (1.001-1.035) Urine Protein Negative (Negative) Urine Ketones Negative (Negative) Urine Blood 1+ /uL (Negative) H Urine Nitrite Negative (Negative) Urine Bilirubin Negative (Negative) Urine Urobilinogen Normal mg/dL (Negative) Urine Leukocyte Esterase Negative /uL (Negative) Urine RBC 13 /hpf (0 - 3) Urine Microscopic WBC 1 /HPF (0-3) Urine Squamous Epithelial Cells None seen /hpf (<5) Urine Bacteria None seen /hpf (None Seen) Urine Glucose Normal mg/dL (Normal) Microbiology Microbiology Date/Time Source Procedure Growth Status 12/26/24 08:20 Stool Stool Culture - Preliminary Resulted 12/26/24 08:20 Stool Shiga Toxin I & II - Final Resulted 12/23/24 22:49 Blood Blood Culture - Preliminary NO GROWTH AFTER 72 HOURS OF INCUBATION. Resulted Labs and/or images reviewed: Labs reviewed by me, Image(s) reviewed by me Assessment/Plan Assessment/Plan Impression: -diverticular abscess -sepsis -dyslipidemia -primary hypertension Plan: Events: CT reveals no abscess advance diet -Clear diet as tolerated -continue antibiotic therapy with Zosyn -PPI -repeat labs in a.m. -reassess for discharge in a.m. Total time spent with patient discussing and formulating plan of care: 35 minutes. This medical document was created using an electronic medical record system with Split dictation system. Although this document has been carefully reviewed, there may still be some phonetic and typographical errors. These areas are purely typographical due to imperfections of the software programs, and do not reflect any compromise in the patient's medical care. Plan discussed with: Patient, Other (RN) My Orders Orders - JOHN REDDY NP Procedure Category Date Status Time Clear Liq Diet DIET 12/27/24 Transmitted Breakfast Full Liq Diet DIET 12/27/24 Verified Dinner Mechanical Soft Diet DIET 12/28/24 Verified Breakfast Date of Service: Dec 27, 2024 Billing Provider: JOHN REDDY NP Common Visit Codes: [id number] INP/OBS CARE(HIGH) JOHN REDDY NP Dec 27, 2024 14:24
[2024-12-27 16:30] VITALS: BP 146/90; PULSE 65; RESP 17; TEMP 98.2; O2SAT 96
[2024-12-27 21:00] VITALS: BP 140/87; PULSE 72; RESP 17; TEMP 97.9; O2SAT 94
[2024-12-28 01:00] VITALS: BP 129/74; PULSE 72; RESP 18; TEMP 97.7; O2SAT 96
[2024-12-28 05:00] VITALS: BP 138/81; PULSE 61; RESP 18; TEMP 97.5; O2SAT 95
[2024-12-28 06:12] LABS: Hematocrit 44.4 % (41.0-53.0); Hemoglobin 15.7 g/dL (13.5-17.5); Mean Corpuscular Hemoglobin 32.2 pg (28.0-32.0); Mean Corpuscular Volume 91.5 fL (80.0-100.0); Nucleated Red Blood Cells % 0.1 %
[2024-12-28 06:21] LABS: Potassium 3.8 mmol/L (3.5-5.1); Sodium 143 mmol/L (136-145)
[2024-12-28 06:23] LABS: Calcium 9.1 mg/dL (8.7-10.4); Chloride 109 mmol/L (98-107)
[2024-12-28 06:27] LABS: Glucose 95 mg/dL (74-106)
[2024-12-28 06:31] LABS: BUN/Creatinine Ratio 4.4 (10.0-20.0); Blood Urea Nitrogen < 5 mg/dL (9-23)
[2024-12-28 06:43] LABS: Anion Gap 9 (5-15); Carbon Dioxide 25 mmol/L (20-31)
[2024-12-28 08:00] VITALS: PULSE 0; RESP 18
[2024-12-28 08:30] VITALS: BP_SYST 130; BP_SYST 141; BP_DIAS 68; BP_DIAS 94; PULSE 74; RESP 18; TEMP 97.5; O2SAT 95; O2SAT 97
[2024-12-28 12:30] VITALS: BP 143/92; PULSE 75; RESP 16; TEMP 98.6; O2SAT 96
[2024-12-28] MEDS ORDERED: METR-344 PO (14:03)
--- NOTE | 2024-12-28 15:33 | DVHDS2 ---
Discharge Summary Date of Admission Dec 23, 2024 at 23:53 Date of Discharge: Dec 28, 2024 Admitting Diagnosis Acute abdominal pain secondary to diverticulitis Labs/Diagnostic Data: Laboratory Results Test 12/28/24 05:24 12/24/24 08:04 12/23/24 21:48 12/23/24 19:02 White Blood Count 6.1 10^3/uL (4.4-10.8) Red Blood Count 4.86 10^6/uL (4.5-5.90) Hemoglobin 15.7 g/dL (13.5-17.5) Hematocrit 44.4 % (41.0-53.0) Mean Corpuscular Volume 91.5 fL (80.0-100.0) Mean Corpuscular Hemoglobin 32.2 pg (28.0-32.0) Mean Corpuscular Hemoglobin Concent 35.3 g/dL (32.0-36.0) Red Cell Distribution Width 13.4 % (11.8-14.3) Platelet Count 237 10^3/uL (140-450) Mean Platelet Volume 8.4 fL (6.9-10.8) Neutrophils (%) (Auto) 39.0 % (37.0-80.0) Lymphocytes (%) (Auto) 45.4 % (10.0-50.0) Monocytes (%) (Auto) 12.5 % (0.0-12.0) Eosinophils (%) (Auto) 2.7 % (0.0-7.0) Basophils (%) (Auto) 0.4 % (0.0-2.0) Neutrophils # (Auto) 2.4 10 ^3/uL (1.6-8.6) Lymphocytes # (Auto) 2.8 10 ^3/uL (0.4-5.4) Monocytes # (Auto) 0.8 10 ^3/uL (0-1.3) Eosinophils # (Auto) 0.2 10 ^3/uL (0-0.8) Basophils # (Auto) 0 10 ^3/uL (0-0.2) Nucleated Red Blood Cells 0.1 % Sodium Level 143 mmol/L (136-145) Potassium Level 3.8 mmol/L (3.5-5.1) Chloride Level 109 mmol/L (98-107) Carbon Dioxide Level 25 mmol/L (20-31) Anion Gap 9 (5-15) Blood Urea Nitrogen < 5 mg/dL (9-23) Creatinine 1.13 mg/dL (0.700-1.30) Glomerular Filtration Rate Calc 76 mL/min (>90) BUN/Creatinine Ratio 4.4 (10.0-20.0) Serum Glucose 95 mg/dL (74-106) Calcium Level 9.1 mg/dL (8.7-10.4) Prothrombin Time 11.6 sec (9.3-11.8) Prothrombin Time INR 1.11 (0.9-1.15) Activated Partial Thromboplast Time 28.6 SEC (24.5-34.5) Urine Color Light-yellow (Yellow) Urine Clarity Clear (Clear) Urine pH 6.0 (5.0-9.0) Urine Specific [place] 1.040 (1.001-1.035) Urine Protein Negative (Negative) Urine Ketones Negative (Negative) Urine Blood 1+ /uL (Negative) Urine Nitrite Negative (Negative) Urine Bilirubin Negative (Negative) Urine Urobilinogen Normal mg/dL (Negative) Urine Leukocyte Esterase Negative /uL (Negative) Urine RBC 13 /hpf (0 - 3) Urine Microscopic WBC 1 /HPF (0-3) Urine Squamous Epithelial Cells None seen /hpf (<5) Urine Bacteria None seen /hpf (None Seen) Urine Glucose Normal mg/dL (Normal) Lactic Acid Level 1.2 mmol/L (0.4-2.0) Total Bilirubin 0.9 mg/dL (0.2-1.0) Aspartate Amino Transferase (AST) 27 U/L (13-40) Alanine Aminotransferase (ALT) 34 U/L (7-40) Alkaline Phosphatase 97 U/L (46-116) Troponin I High Sensitivity 3 ng/L (</=54) Total Protein 7.5 g/dL (5.7-8.2) Albumin 4.8 g/dL (3.2-4.8) Lipase 42 U/L (12-53) Other Laboratory Tests 12/28/24 05:24 Brief Hx & Hospital Course: History of Present Illness 59-year-old male presents for evaluation of abdominal pain. Patient reports a one day history of sharp epigastric abdominal pain that radiates down to his groin. Reports episodes of nausea and chills. No diarrhea. No cardiac or respiratory complaints. Course of hospitalization: Initial CT scan was questionable for possible abscess. Patient was kept NPO, given IV hydration as well as pain management and IV antibiotic therapy with Zosyn. Patient's white blood cell count improved after 24 hours. Patient was continued to be NPO for the next [address] scan with IV contrast reveals no signs of abscess. Patient had diet that was advanced. He has been without any pain medication for the past two days. Patient will be discharged home today, with continuation of antibiotic therapy in the form of Flagyl 500 mg p.o. t.i.d. for the next five days. He was given education regarding dietary restrictions including anything of the has seeds and is recommended to changes diet to have increase fiber so he has regular bowel movements. Patient verbalized understanding. All questions answered. Physical examination General: Alert and Oriented x3. No acute distress. Well-nourished. Eyes: EOMI. Anicteric. HENT: Moist mucous membranes. Lungs: Clear to auscultation bilaterally. No accessory muscle use. Cardiovascular: Regular rate and rhythm. No murmur. No JVD. Abdomen: Soft, non-tender and non-distended. No palpable masses. Extremities: No edema. Non-tender. Skin: No rashes or lesions. Warm. Neurologic: No focal neurological deficits. CN II-XII grossly intact, but not individually tested. Psychiatric: Cooperative. Appropriate mood and affect. Total time spent with patient discussing and formulating plan of care: 35 minutes. This medical document was created using an electronic medical record system with [employer] dictation system. Although this document has been carefully reviewed, there may still be some phonetic and typographical errors. These areas are purely typographical due to imperfections of the software programs, and do not reflect any compromise in the patient's medical care. Condition at Discharge: Fair Final Diagnosis/Problems List Diverticulitis Secondary diagnosis: -diverticular abscess , resolved -sepsis -dyslipidemia -primary hypertension Discharge Disposition: Home Discharge Instruct/Medications Diet: Regular Diet comment: Discussed to not see any foods with seeds Activity: No Restrictions, As Tolerated Follow Up/Referral: Follow up with PCP, Dr. Schneider in 1-2 weeks Medications: Flagyl 500 mg p.o. t.i.d. for five days Scheduled Atorvastatin Calcium (Lipitor), 1 TAB PO QPM, (Reported) Fluoxetine Hcl (Fluoxetine Hcl), 1 TAB PO TID, (Reported) Lisinopril (Lisinopril), 1 TAB PO DAILY, (Reported) Loratadine (Loradamed), 10 MG PO DAILY, (Reported) Metronidazole (Flagyl), 1 TAB PO TID Miscellaneous Medications Cholecalciferol (Vitamin D-3), 5,000 UNIT PO, (Reported) 36 Discharge Statement: "Patient was advised to return to the ER or call 911 if any headaches, dizziness, shortness of breath, chest pain, abdominal pain, bleeding, fevers, or worsening of medical condition. Patient was counseled about treatment plan, medications, possible side effects, patientverbalized understanding. All questions were answered to the best of my ability. This discharge took greater then 30 minutes in planning, reviewing documentation, counseling the patient, and discussing with other team members." ASSESSMENT ASSESSMENT Assessment Diverticulitis Date of Service: Dec 28, 2024 Billing Provider: JOHN REDDY NP Common Visit Codes: 59409-UFY/OBS DISCH DAY >30min JOHN REDDY NP Dec 28, 2024 15:33
== END 2024-12-28 16:10 | disposition home or self-care (01) | DRG 720 ==
LOC: ER 18:19 → OVERFLOW 23:53 → WEST WING 12-24 18:35
PROVIDERS: ADMIT Nurse Practitioner Acute Care; ATTEND Nurse Practitioner Acute Care
DX: A41.9 Sepsis, unspecified organism (principal); N17.9 Acute kidney failure, unspecified; K57.20 Diverticulitis of large intestine with perforation and abscess without bleeding; B19.20 Unspecified viral hepatitis C without hepatic coma; E78.5 Hyperlipidemia, unspecified; I10 Essential (primary) hypertension; N26.1 Atrophy of kidney (terminal); N43.3 Hydrocele, unspecified
CPT/HCPCS: 36415; 71260; 74177; 76870; 80048; 80053; 81001; 83605; 83690; 84484; 85025; 85610; 85730; 87040; 87045; 87427; 93005; 96365; 96375; G0378; J2405; J2470; J2543; J7042

== ENCOUNTER 2025-02-17 07:58 | Emergency (ER) | payer MEDICAID ==
[~2025-02-17] VITALS: Ht 160 cm; Wt 68.9 kg
[~2025-02-17 07:58] MED LIST: ATOR-507 PO; CHOL500033 PO; FLUO20TA42 PO; LISI20TA56 PO; LORA-35 PO; METR-344 PO
--- NOTE | 2025-02-17 08:26 | ED.PDOC ---
History of Present Illness HPI Comments This is a 59 year old male presenting to the ED with chief complaint of generalized weakness. Patient reports that he has been experiencing symptoms of generalized weakness with associated SOB, 6/10 chest tightness, constipation, poor appetite, and muscle spasms since smoking marijuana 3 days ago while drunk. Patient relays that he believes the cigarette he smoked had been laced with something else as he has never felt like this before when smoking marijuana. Patient denies any abdominal pain, N/V/D, dizziness, fever, chills, or headache. Chief Complaint: General Weakness Time Seen by MD: 08:24 Primary Care Provider: BERRY Reviewed Notes: Nurses Notes, Medications, Allergies Allergies: Coded Allergies: NO KNOWN ALLERGIES (Unverified , 12/23/24) Home Meds Active Scripts Ondansetron Odt 4MG Tab (ZOFRAN PO) 4 Mg Tb, 4 MG PO Q8HP PRN for 6 Days, #18 TAB ODT TAB-DISSOLVE IN MOUTH, THEN SWALLOW Prov:MARLIN FERRER MD 02/17/25 Metronidazole (Flagyl) 500 Mg Tab, 1 TAB PO TID for 5 Days, #15 TAB Prov:JOHN REDDY NP 12/28/24 Reported Medications Atorvastatin Calcium (Lipitor) 40 Mg Tab, 1 TAB PO QPM, #90 TAB 1 Refill 12/24/24 Fluoxetine Hcl (Fluoxetine Hcl) 20 Mg Tab, 1 TAB PO TID, #90 TAB 3 Refills 12/24/24 Loratadine (Loradamed) 10 Mg Tab, 10 MG PO DAILY, MG 12/24/24 Cholecalciferol (Vitamin D-3) 5,000 Unit Cap, 5000 UNIT PO, CAP 12/24/24 Lisinopril (Lisinopril) 20 Mg Tab, 1 TAB PO DAILY, #30 TAB 5 Refills 12/24/24 Information Source: Patient Mode of Arrival: Ambulatory Severity: Moderate Timing: Days Duration: Since onset Prehospital treatment: None Past Medical History PAST MEDICAL HISTORY: CKF, High Lipids, HTN Surgical History: Hernia Repair Surgical History (Other): Liver biopsy Family History Family History: Reviewed,noncontributory to illness, Unknown Social History Smoker: Non-Smoker Alcohol: Occasionally Drugs: Marijuana Lives In: Home Constitutional: reports: weakness; denies: chills, diaphoresis, fatigue, fever, malaise, sweats, others EENTM: denies: blurred vision, double vision, ear bleeding, ear discharge, ear drainage, ear pain, ear ringing, eye pain, eye redness, hearing loss, mouth pain, mouth swelling, nasal discharge, nose bleeding, nose congestion, nose pain, photophobia, tearing, throat pain, throat swelling, voice changes, others Respiratory: denies: cough, hemoptysis, orthopnea, SOB at rest, shortness of breath, SOB with excertion, stridor, wheezing, others Cardiovascular: reports: chest pain; denies: dizzy spells, diaphoresis, Dyspnea on exertion, edema, irregular heart beat, left arm pain, lightheadedness, palpitations, PND, syncope, others Gastrointestinal: reports: constipated, poor appetite; denies: abdomen distended, abdominal pain, blood streaked bowels, diarrhea, dysphagia, difficulty swallowing, hematemesis, melena, nausea, poor fluid intake, rectal bl eeding, rectal pain, vomiting, others Genitourinary: denies: burning, dysuria, flank pain, frequency, hematuria, incontinence, penile discharge, penile sore, pain, testicle pain, testicle swelling, urgency, others Neurological: denies: dizziness, fainting, headache, left sided numbness, left sided weakness, numbness, paresthesia, pre-existing deficit, right sided numbness, right sided weakness, seizure, speech problems, tingling, tremors, weakness, others Musculoskeletal: reports: muscle pain; denies: back pain, gout, joint pain, joint swelling, muscle stiffness, neck pain, others Integumetry: denies: bruises, change in color, change in hair/nails, dryness, laceration, lesions, lumps, rash, wounds, others Allergic/Immunocompromised: denies: Difficulty Healing, Frequent Infections, Hives, Itching, others Hematologic/Lymphatic: denies: anemia, blood clots, easy bleeding, easy bruising, swollen glands, others Endocrine: denies: excessive hunger, excessive sweating, excessive thirst, excessive urination, flushing, intolerance to cold, intolerance to heat, unexplained weight gain, unexplained weight loss, others Psychiatric: denies: anxiety, bipolar disorder, depression, hopeless, panic disorder, schizophrenia, sleepless, suicidal, others All Other Systems: Reviewed and Negative Physical Exam General Appearance: Mild Distress HEENT: Normal ENT Inspection, Pharynx Normal, TMs Normal Neck: Full Range of Motion, Non-Tender, Normal, Normal Inspection Respiratory: Chest Non-Tender, Lungs Clear, No Accessory Muscle Use, No Respiratory Distress, Normal Breath Sounds Cardiovascular: No Edema, No JVD, No Murmur, No Gallop, Normal Peripheral Pulses, Regular Rate/Rhythm Breast Exam: Deferred Gastrointestinal: No Organomegaly, Non Tender, No Pulsatile Mass, Normal Bowel Sounds, Soft Genitalia: Deferred Pelvic: Deferred Rectal: Deferred Extremities: No calf tenderness, Normal capillary refill, Normal inspection, Normal range of motion, Non-tender, No pedal edema Musculoskeletal : Apperance: Normal Neurologic: Alert, topline beading machine tender II-XII nml as Tested, No Motor Deficits, Normal Affect, Normal Mood, No Sensory Deficits Cerebellar Function: Normal Reflexes: Normal Skin: Dry, Normal Color, Warm Lymphatic: No Adenopathy Was a procedure done? Was a procedure done?: No Differential Dx Considerations may include: Generalized weakness, electrolyte imbalance, substance abuse, chemical exposure X-Ray, Labs, Meds, VS Vital Signs Date Time Temp Pulse Resp B/P (MAP) Pulse Ox O2 Delivery O2 Flow Rate FiO2 02/17/25 12:26 97.6 118 18 145/96 (112) 95 97.6 02/17/25 12:26 118 18 95 Room Air 02/17/25 08:01 98.9 130 18 155/100 98 98.9 Lab Test 02/17/25 14:45 02/17/25 08:40 Range/Units Urine Opiates Screen Neg NEGATIVE Urine Fentanyl Screen Neg NEGATIVE Urine Barbiturates Screen Neg NEGATIVE Urine Phencyclidine Screen Neg NEGATIVE Urine Amphetamines Screen Pos NEGATIVE Urine Benzodiazepines Screen Neg NEGATIVE Urine Cocaine Screen Neg NEGATIVE Urine Cannabinoids Screen Neg NEGATIVE White Blood Count 9.6 4.4-10.8 10^3/uL Red Blood Count 5.05 4.5-5.90 10^6/uL Hemoglobin 16.5 13.5-17.5 g/dL Hematocrit 46.7 41.0-53.0 % Mean Corpuscular Volume 92.5 80.0-100.0 fL Mean Corpuscular Hemoglobin 32.7 H 28.0-32.0 pg Mean Corpuscular Hemoglobin Concent 35.4 32.0-36.0 g/dL Red Cell Distribution Width 13.8 11.8-14.3 % Platelet Count 237 140-450 10^3/uL Mean Platelet Volume 8.0 6.9-10.8 fL Neutrophils (%) (Auto) 55.0 37.0-80.0 % Lymphocytes (%) (Auto) 29.0 10.0-50.0 % Monocytes (%) (Auto) 15.3 H 0.0-12.0 % Eosinophils (%) (Auto) 0.3 0.0-7.0 % Basophils (%) (Auto) 0.4 0.0-2.0 % Neutrophils # (Auto) 5.3 1.6-8.6 10 ^3/uL Lymphocytes # (Auto) 2.8 0.4-5.4 10 ^3/uL Monocytes # (Auto) 1.5 H 0-1.3 10 ^3/uL Eosinophils # (Auto) 0 0-0.8 10 ^3/uL Basophils # (Auto) 0 0-0.2 10 ^3/uL Nucleated Red Blood Cells 0.1 % Sodium Level 141 136-145 mmol/L Potassium Level 4.1 3.5-5.1 mmol/L Chloride Level 104 98-107 mmol/L Carbon Dioxide Level 25 20-31 mmol/L Anion Gap 12 5-15 Blood Urea Nitrogen 16 9-23 mg/dL Creatinine 1.23 0.700-1.30 mg/dL Glomerular Filtration Rate Calc 68 >90 mL/min BUN/Creatinine Ratio 13.0 10.0-20.0 Serum Glucose 97 74-106 mg/dL Calcium Level 9.5 8.7-10.4 mg/dL Plasma/Serum Blood Alcohol 8.2 <10 mg/dL Current Medications Medications (Trade) Dose Ordered Sig/Waqar Route Start Time Stop Time Status Last Admin Sodium Chloride 1,000 ml @ 1,000 mls/hr Q1H ONCE IV 02/17/25 08:30 02/17/25 09:29 DC 02/17/25 12:26 The patient's CBC is within normal limits The chemistry panel is within normal limits The alcohol level is negative IV Hep-Lock is being established The patient is given a 1 L bolus of normal saline The patient's urine test is positive for methamphetamines but negative for everything else including marijuana The patient will be discharged at this time The patient will return to the emergency department's condition worsens. The patient was given substance abuse counseling Time of 1ST Reevaluation: 10:49 Reevaluation 1ST: Unchanged Patient Education/Counseling: Diagnosis, Treatment, Prognosis, Need For Follow Up Family Education/Counseling: No Family Present SEPSIS Sepsis Screen Date sepsis recognized/suspect: Feb 17, 2025 Time Sepsis recognized/suspect: 08 Recent Procedure: No On Antibiotic Therapy: No Respiratory Rate >20: No Heart Rate >90: No Temp<36 C (96.8 F) or >38.3 C: No SBP <90 or MAP <65 mmHG: No New Acute Mental Status Change: No Is the patient on CPAP, BIPAP,: No Physician Orders Heplock Iv (02/17/25 08:18) Route Supervisor (02/17/25 08:18) Blood Pressure (02/17/25 08:18) Pulse Oximetry (02/17/25 08:18) Electrocardigram (02/17/25 08:18) Electrocardigram (02/17/25 09:18) Electrocardigram (02/17/25 11:18) Vital Signs Date Time Temp Pulse Resp B/P (MAP) Pulse Ox O2 Delivery O2 Flow Rate FiO2 02/17/25 12:26 97.6 118 18 145/96 (112) 95 97.6 02/17/25 12:26 118 18 95 Room Air 02/17/25 08:01 98.9 130 18 155/100 98 98.9 Laboratory Tests Test 02/17/25 08:40 White Blood Count 9.6 10^3/uL (4.4-10.8) Medications Medications Dose Ordered Sig/Waqar Route Start Time Stop Time Status Last Admin Dose Admin Sodium Chloride 1,000 ml @ 1,000 mls/hr Q1H ONCE IV 02/17/25 08:30 02/17/25 09:29 DC 02/17/25 12:26 Departure 1 Departure Time of Disposition: 15:26 Impression: Primary Impression: Vomiting Qualified Codes: R11.14 - Bilious vomiting Additional Impression: Methamphetamine use Disposition: 01 HOME / SELF CARE / HOMELESS Condition: Fair e-Prescriptions Ondansetron Odt 4MG Tab (ZOFRAN PO) 4 Mg Tb 4 MG PO Q8HP PRN for 6 Days, #18 TAB ODT TAB-DISSOLVE IN MOUTH, THEN SWALLOW Prov: NABIL,MARLIN B MD 02/17/25 Discharged With: Self Critical Care Note Critical Care Time?: No Stability Stability form required: No Heart Score Heart Score: Heart Score Response (Comments) Value History N/A 0 EKG N/A 0 Age N/A 0 Risk Factors N/A 0 Troponin N/A 0 Total 0 I personally scribed for MARLIN FERRER MD ([email or web address]) on 02/17/25 at 08:26. Electronically submitted by Andrew Oglesby ([email or web address]). MARLIN FERRER MD Feb 17, 2025 08:26
[2025-02-17 08:56] LABS: Hematocrit 46.7 % (41.0-53.0); Hemoglobin 16.5 g/dL (13.5-17.5); Mean Corpuscular Hemoglobin 32.7 pg (28.0-32.0); Mean Corpuscular Volume 92.5 fL (80.0-100.0); Nucleated Red Blood Cells % 0.1 %
[2025-02-17 09:07] LABS: Chloride 104 mmol/L (98-107); Potassium 4.1 mmol/L (3.5-5.1); Sodium 141 mmol/L (136-145)
[2025-02-17 09:08] LABS: Anion Gap 12 (5-15); Calcium 9.5 mg/dL (8.7-10.4); Carbon Dioxide 25 mmol/L (20-31)
[2025-02-17 09:13] LABS: BUN/Creatinine Ratio 13.0 (10.0-20.0); Blood Urea Nitrogen 16 mg/dL (9-23); Glucose 97 mg/dL (74-106)
[2025-02-17] MEDS: SODIUM CHLORIDE 0.9% 1,000 ML IV ONE (12:26)
[2025-02-17 15:10] LABS: Amphetamine Screen, Urine Pos (NEGATIVE); Barbiturate Scree,Urine Neg (NEGATIVE); Benzodiazephine Screen, Urine Neg (NEGATIVE); Cannabinoid Screen, Urine Neg (NEGATIVE); Cocaine Screen, Urine Neg (NEGATIVE); Opiate Scree,Urine Neg (NEGATIVE); Phencyclidine Screen, Urine Neg (NEGATIVE)
[2025-02-17] MEDS ORDERED: ZOFR4T PO (15:27)
[2025-02-17 17:22] VITALS: BP 160/95; PULSE 102; RESP 18; TEMP 98.9; O2SAT 97
== END 2025-02-17 17:35 | disposition home or self-care (01) ==
LOC: ER 07:58
DX: F15.90 Other stimulant use, unspecified, uncomplicated (principal); R11.10 Vomiting, unspecified; F12.90 Cannabis use, unspecified, uncomplicated; F10.90 Alcohol use, unspecified, uncomplicated; I12.9 Hypertensive chronic kidney disease with stage 1 through stage 4 chronic kidney disease, or unspecified chronic kidney disease; N18.9 Chronic kidney disease, unspecified; E78.5 Hyperlipidemia, unspecified; Z79.899 Other long term (current) drug therapy; Z98.890 Other specified postprocedural states; Y90.9 Presence of alcohol in blood, level not specified
CPT/HCPCS: 36415; 80048; 80307; 80320; 85025; 96360; 99283; J7030